=== PATIENT | male | born 1970 | race Hispanic/Latino ===

== ENCOUNTER 2020-11-18 09:30 | Emergency (ER) | payer SELFPAY ==
[2020-11-18 10:20] LABS: Urine Blood Trace-intact (Negative); Urine Glucose Negative (Negative); Urine Protein Negative (Negative)
[2020-11-18] MEDS ORDERED: NA CHLORIDE 0.9% 1,000 ML ONE (10:43)
[2020-11-18 10:58] LABS: Absolute Lymphocytes (CBC) 1.9 K/uL (0.7-4.9); Basophils % 0.4 % (0-1.3); Hematocrit 48.3 % (39.6-49.0); Lymphocytes % 27.6 % (15.3-44.8); MPV 8.5 fL (7.6-11.3); RBC Red Blood Cell Count 5.47 M/uL (4.33-5.43)
[2020-11-18 11:08] LABS: ALT/SGPT 67 U/L (12-78); AST/SGOT 31 U/L (15-37); Albumin 4.1 g/dL (3.4-5.0); Alkaline Phosphatase 87 U/L (45-117); BUN Blood Urea Nitrogen 15 mg/dL (7-18); Bicarbonate 28 mmol/L (21-32); Bilirubin Direct < 0.1 mg/dL (0-0.2); Bilirubin Total 0.3 mg/dL (0.2-1.0); Glucose Level 93 mg/dL (74-106); Lipase 88 U/L (73-393); Potassium 4.2 mmol/L (3.5-5.1); Protein, Total 8.2 g/dL (6.4-8.2); Sodium Level 139 mmol/L (136-145); Troponin (Emerg Dept Use Only) < 0.02 ng/mL (0.0-0.045)
--- NOTE | 2020-11-18 11:11 | RAD REPORT ---
EXAM DESCRIPTION: CTAbdomen Pelvis W Contrast - 11/18/2020 10:51 am CLINICAL HISTORY: Abdominal pain. ABD PAIN COMPARISON: CT ABD PELVIS W CONTRAST dated 03/25/2014 TECHNIQUE: Biphasic CT imaging of the abdomen and pelvis was performed with 100 ml non-ionic IV cont rast. All CT scans are performed using dose optimization technique as appropriate and may include automated exposure control or mA/KV adjustment according to patient size. FINDINGS: Calcified pleural plaquing is present bilaterally, greater on the right. The liver, spleen, pancreas, adrenal glands and kidneys are within normal limits. No bowel obstruction, free air, free fluid or abscess. The appendix is normal. No evidence of signi ficant lymphadenopathy. No suspicious bony findings. IMPRESSION: No acute intra-abdominal or pelvic finding.
--- NOTE | 2020-11-18 11:21 | RAD REPORT ---
EXAM DESCRIPTION: RAD - Chest Single View - 11/18/2020 10:31 am CLINICAL HISTORY: ABDOMINAL DISTENTION Chest pain. COMPARISON: No comparisons FINDINGS: Portable technique limits examination quality. The lungs are grossly clear. The heart is normal in size. No displaced fractures. IMPRESSION: No acute intrathoracic process suspected.
--- NOTE | 2020-11-18 11:57 | ER ---
Nurse's Notes [facility] Name: Sunil Paz Age: 50 yrs Sex: Male : 1970 Arrival Date: 11/18/2020 Time: 09:34 Bed 14 [facility] MD: Diagnosis: Abdominal pain, unspecified Presentation: 11/18 09:57 Chief complaint: Patient states: L flank pain that radiates to L side of abd with ss trouble urination and nausea at times x 2 weeks. Coronavirus screen: Client denies travel out of the [place] in the last 14 days. Ebola Screen: Patient denies exposure to infectious person. Patient denies travel to an Ebola-affected area in the 21 days before illness onset. Initial Sepsis Screen: Does the patient meet any 2 criteria? No. Patient's initial sepsis screen is negative. Does the patient have a suspected source of infection? No. Patient's initial sepsis screen is negative. Risk Assessment: Do you want to hurt yourself or someone else? Patient reports no desire to harm self or others. Onset of symptoms was November 04, 2020. 09:57 Method Of Arrival: Ambulatory ss 09:57 Acuity: ANTWON 3 ss Historical: - Allergies: 09:59 Unknown pain medication; ss - Home Meds: 09:59 None [Active]; ss - PMHx: 09:59 None; ss - PSHx: 09:59 None; ss - Immunization history:: Adult Immunizations up to date, Client reports receiving the 2nd dose of the Covid vaccine. - Social history:: Smoking status: Patient denies any tobacco usage or history of. - Family history:: not pertinent. Screenin:38 Abuse screen: Denies threats or abuse. Nutritional screening: No deficits noted. vg1 Tuberculosis screening: No symptoms or risk factors identified. Fall Risk No fall in past 12 months (0 pts). No secondary diagnosis (0 pts). IV access (20 points). Ambulatory Aid- None/Bed Rest/Nurse Assist (0 pts). Gait- Normal/Bed Rest/Wheelchair (0 pts) Mental Status- Oriented to own ability (0 pts). Total Sun Fall Scale indicates No Risk (0-24 pts). Assessment: 10:10 General: Appears in no apparent distress. comfortable, Behavior is calm, cooperative. vg1 Pain: Complains of pain in left lower quadrant and lower back Pain currently is 9 out of 10 on a pain scale. Quality of pain is described as sharp, Pain began about 2 weeks. Neuro: Level of Consciousness is awake, alert, obeys commands, Oriented to person, place, time, situation. Cardiovascular: Patient's skin is warm and dry. Respiratory: Airway is patent Respiratory effort is even, unlabored. GI: Bowel sounds present X 4 quads. Abdomen is tender to palpation in left lower quadrant Reports nausea, vomiting. : Urine is clear. EENT: No signs and/or symptoms were reported regarding the EENT system. Derm: Skin is intact, is healthy with good turgor. Musculoskeletal: Circulation, motion, and sensation intact. 11:39 Reassessment: Patient appears in no apparent distress at this time. No changes from vg1 previously documented assessment. Patient and/or family updated on plan of care and expected duration. Pain level reassessed. Patient is alert, oriented x 3, equal unlabored respirations, skin warm/dry/pink. Vital Signs: 09:57 BP 145 / 100; Pulse 63; Resp 16; Temp 97.2(TE); Pulse Ox 100% on R/A; Weight 78.02 kg; ss Height 5 ft. 9 in. (175.26 cm); Pain 9/10; 10:10 BP 144 / 88; Pulse 68; Resp 16; Pulse Ox 99% ; vg1 11:30 BP 154 / 91; Pulse 72; Resp 16; Pulse Ox 98% on R/A; vg1 09:57 Body Mass Index 25.40 (78.02 kg, 175.26 cm) ED Course: 09:34 Patient arrived in ED. ds1 09:59 Triage completed. ss 09:59 Arm band placed on right wrist. ss 10:00 Joss Gutierrez MD is Attending Physician. [facility] 10:12 Renetta Martell, RONNIE is Primary Nurse. vg1 10:28 Initial lab(s) drawn, by me, sent to lab. Inserted saline lock: 20 gauge in right vg1 antecubital area, using aseptic technique. Blood collected. 10:31 Chest Single View XRAY In Process Unspecified. EDMS 10:38 Patient has correct armband on for positive identification. Bed in low position. Call [facility] light in reach. Side rails up X 1. 10:52 CT Abd/Pelvis - IV Contrast Only In Process Unspecified. EDMS 12:15 No provider procedures requiring assistance completed. IV discontinued, intact, vg1 bleeding controlled, No redness/swelling at site. Pressure dressing applied. Administered Medications: 10:34 Drug: NS 0.9% 1000 ml Route: IV; Rate: 1 bolus; Site: right antecubital; vg1 11:48 Follow up: IV Status: Completed infusion; IV Intake: 1000ml vg1 Intake: 11:48 IV: 1000ml; Total: 1000ml. vg1 Outcome: 11:56 Discharge ordered by . troy 12:15 Discharged to home ambulatory. vg1 12:15 Condition: stable 12:15 Discharge instructions given to patient, Instructed on discharge instructions, follow up and referral plans. medication usage, Demonstrated understanding of instructions, follow-up care, medications, Prescriptions given X 1. 12:16 Patient left the ED. vg1 Signatures: Dispatcher [employer] EDMS Joss Gutierrez MD MD cha Sanford, Demi ds1 Roxanne Lees, Renetta Whitfield RN, RN RN vg1
--- NOTE | 2020-11-18 11:57 | EDPHYS ---
Physician Documentation [facility] Name: Sunil Paz Age: 50 yrs Sex: Male : 1970 Arrival Date: 11/18/2020 Time: 09:34 Bed 14 Private MD: VICKEY Physician Joss Gutierrez HPI: 11/18 11:51 This 50 yrs old Male presents to ER via Ambulatory with complaints of troy Abdominal Pain, Back Pain. 11:51 The patient presents with pain that is acute, with no known mechanism of injury. The troy symptoms are located in the low back, left low back and left mid back. Onset: The symptoms/episode began/occurred 14 day(s) ago. The pain radiates to the left low back and left mid back. Associated signs and symptoms: The patient has no apparent associated signs or symptoms. The problem was sustained from unknown cause. Modifying factors: The patient symptoms are alleviated by nothing, the patient symptoms are aggravated by nothing. Severity of symptoms: At their worst the symptoms were mild, this morning. The patient has not experienced similar symptoms in the past. Historical: - Allergies: 09:59 Unknown pain medication; ss - Home Meds: :59 None [Active]; ss - PMHx: :59 None; ss - PSHx: 09:59 None; ss - Immunization history:: Adult Immunizations up to date, Client reports receiving the 2nd dose of the Covid vaccine. - Social history:: Smoking status: Patient denies any tobacco usage or history of. - Family history:: not pertinent. ROS: 11:51 Constitutional: Negative for fever, chills, and weight loss, Eyes: Negative for injury, troy pain, redness, and discharge, ENT: Negative for injury, pain, and discharge, Neck: Negative for injury, pain, and swelling, Cardiovascular: Negative for chest pain, palpitations, and edema, Respiratory: Negative for shortness of breath, cough, wheezing, and pleuritic chest pain, Back: Negative for injury and pain, : Negative for injury, bleeding, discharge, and swelling, MS/Extremity: Negative for injury and deformity, Skin: Negative for injury, rash, and discoloration, Neuro: Negative for headache, weakness, numbness, tingling, and seizure, Psych: Negative for depression, anxiety, suicide ideation, homicidal ideation, and hallucinations, Allergy/Immunology: Negative for hives, rash, and allergies, Endocrine: Negative for neck swelling, polydipsia, polyuria, polyphagia, and marked weight changes, Hematologic/Lymphatic: Negative for swollen nodes, abnormal bleeding, and unusual bruising. 11:51 Abdomen/GI: Positive for abdominal pain, of the anterior aspect of left lateral abdomen, posterior aspect of left lateral abdomen and left lower quadrant. Exam: 11:51 Constitutional: This is a well developed, well nourished patient who is awake, alert, troy and in no acute distress. Head/Face: Normocephalic, atraumatic. Eyes: Pupils equal round and reactive to light, extra-ocular motions intact. Lids and lashes normal. Conjunctiva and sclera are non-icteric and not injected. Cornea within normal limits. Periorbital areas with no swelling, redness, or edema. ENT: Nares patent. No nasal discharge, no septal abnormalities noted. Tympanic membranes are normal and external auditory canals are clear. Oropharynx with no redness, swelling, or masses, exudates, or evidence of obstruction, uvula midline. Mucous membranes moist. Neck: Trachea midline, no thyromegaly or masses palpated, and no cervical lymphadenopathy. Supple, full range of motion without nuchal rigidity, or vertebral point tenderness. No Meningismus. Chest/axilla: Normal chest wall appearance and motion. Nontender with no deformity. No lesions are appreciated. Cardiovascular: Regular rate and rhythm with a normal S1 and S2. No gallops, murmurs, or rubs. Normal PMI, no JVD. No pulse deficits. Respiratory: Lungs have equal breath sounds bilaterally, clear to auscultation and percussion. No rales, rhonchi or wheezes noted. No increased work of breathing, no retractions or nasal flaring. Abdomen/GI: Soft, non-tender, with normal bowel sounds. No distension or tympany. No guarding or rebound. No evidence of tenderness throughout. Back: No spinal tenderness. No costovertebral tenderness. Full range of motion. Male : Normal genitalia with no discharge or lesions. Skin: Warm, dry with normal turgor. Normal color with no rashes, no lesions, and no evidence of cellulitis. MS/ Extremity: Pulses equal, no cyanosis. Neurovascular intact. Full, normal range of motion. Neuro: Awake and alert, GCS 15, oriented to person, place, time, and situation. Cranial nerves II-XII grossly intact. Motor strength 5/5 in all extremities. Sensory grossly intact. Cerebellar exam normal. Normal gait. Psych: Awake, alert, with orientation to person, place and time. Behavior, mood, and affect are within normal limits. 11:57 ECG was reviewed by the Attending Physician. [facility] Vital Signs: 09:57 BP 145 / 100; Pulse 63; Resp 16; Temp 97.2(TE); Pulse Ox 100% on R/A; Weight 78.02 kg; ss Height 5 ft. 9 in. (175.26 cm); Pain 9/10; 10:10 BP 144 / 88; Pulse 68; Resp 16; Pulse Ox 99% ; vg1 11:30 BP 154 / 91; Pulse 72; Resp 16; Pulse Ox 98% on R/A; vg1 09:57 Body Mass Index 25.40 (78.02 kg, 175.26 cm) MDM: 10:00 Patient medically screened. [facility] 11:54 Differential diagnosis: Peptic Ulcer Pyelonephritis sprain. Data reviewed: vital signs, [facility] nurses notes, lab test result(s), EKG, radiologic studies, CT scan. Data interpreted: panel monitor: rate is 72 beats/min, rhythm is regular, Pulse oximetry: on room air is 98 %. Test interpretation: by ED physician or midlevel provider: ECG, plain radiologic studies. Counseling: I had a detailed discussion with the patient and/or guardian regarding: the historical points, exam findings, and any diagnostic results supporting the discharge/admit diagnosis, lab results, radiology results. 11/18 10:04 Order name: Basic Metabolic Panel [facility] 11/18 10:04 Order name: CBC with Diff [facility] 11/18 10:04 Order name: Hepatic Function [facility] 11/18 10:04 Order name: Lipase; Complete Time: 11:45 [facility] 11/18 10:04 Order name: Urine Culture [facility] 11/18 10:04 Order name: Troponin (emerg Dept Use Only); Complete Time: 11:45 [facility] 11/18 10:04 Order name: Chest Single View XRAY; Complete Time: 11:45 [facility] 11/18 10:04 Order name: EKG; Complete Time: 10:05 [facility] 11/18 10:04 Order name: CT Abd/Pelvis - IV Contrast Only; Complete Time: 11:45 [facility] 11/18 10:05 Order name: Basic Metabolic Panel; Complete Time: 11:45 [facility] 11/18 10:05 Order name: CBC with Automated Diff; Complete Time: 11:45 [facility] 11/18 10:05 Order name: Liver (Hepatic) Function; Complete Time: 11:45 [facility] 11/18 10:20 Order name: Urine Dipstick-Ancillary; Complete Time: 11:45 [facility] 11/18 10:04 Order name: IV Saline Lock; Complete Time: 10:35 [facility] 11/18 10:04 Order name: Labs collected and sent; Complete Time: 10:35 [facility] 11/18 10:04 Order name: Urine Dipstick-Ancillary (obtain specimen); Complete Time: 10:21 [facility] 11/18 10:04 Order name: EKG - Nurse/Tech; Complete Time: 10:22 [facility] EC:57 Rate is 57 beats/min. Rhythm is regular. QRS [place] is Normal. RI interval is normal. QRS troy interval is normal. QT interval is normal. No Q waves. T waves are Normal. No ST changes noted. Clinical impression: Sinus bradycardia and No evidence of ischemia. Interpreted by me. Reviewed by me. Administered Medications: 10:34 Drug: NS 0.9% 1000 ml Route: IV; Rate: 1 bolus; Site: right antecubital; vg1 11:48 Follow up: IV Status: Completed infusion; IV Intake: 1000ml vg1 Disposition Summary: 11/18/20 11:56 Discharge Ordered Location: Home troy Problem: new troy Symptoms: have improved troy Condition: Stable troy Diagnosis - Abdominal pain, unspecified troy Followup: troy - With: Private Physician - When: 2 - 3 days - Reason: Recheck today's complaints, Continuance of care, Re-evaluation by your physician Discharge Instructions: - Discharge Summary Sheet troy - Abdominal Pain, Adult troy - Pain Without a Known Cause troy Forms: - Medication Reconciliation Form troy - Thank You Letter troy - Antibiotic Education troy - Prescription Opioid Use troy Prescriptions: - dicyclomine 20 mg Oral Tablet - take 1 tablet by ORAL route 4 times per day; 20 tablet; Refills: 0, Product troy Selection Permitted Signatures: Dispatcher [employer] Joss Stanton MD MD cha Smirch, Shelby, RN RN ss Jasbir, Renetta, RN RN vg1
[2020-11-18 12:42] VITALS: TEMP 97.2
[2020-11-18 12:45] VITALS: BP 154/91; O2SAT 98
== END 2020-11-18 12:16 | disposition home or self-care (01) ==
LOC: ER 09:30
DX: R10.32 Left lower quadrant pain (principal)
CPT/HCPCS: 36415; 71045; 74177; 80048; 80076; 81003; 82565; 83690; 84484; 85025; 87086; 87088; 93005; 96360; 99284; J7030; Q9967

== ENCOUNTER 2022-08-16 08:28 | Emergency (ER) | payer SELFPAY ==
--- OUTSIDE RECORDS SUMMARY | 2022-08-16 08:30 | XMS REPORT | Continuity of Care Document ---
:1970 Author Organization [facility] t Address [address] [place] [id number] Care Team Providers Name Role Phone Unavailable Unavailable Unavailable Problems This patient has no known problems. Allergies, Adverse Reactions, Alerts This patient has no known allergies or adverse reactions. Medications This patient has no known medications. Procedures This patient has no known procedures. Results This patient has no known results.
[2022-08-16] MEDS ORDERED: ONDANSETRON 4 MG/2 ML VIAL ONE (09:08)
[2022-08-16] MEDS ORDERED: MORPHINE 4 MG/ML SYR ONE (09:08)
--- NOTE | 2022-08-16 09:18 | RAD REPORT ---
EXAM DESCRIPTION: CT - Stone Protocol - 08/16/2022 9:01 am CLINICAL HISTORY: Abdominal pain./back COMPARISON: 2020 TECHNIQUE: Computed axial tomography of the abdomen pelvis was obtained without oral or IV contrast. Lack of IV and oral contrast limits evaluation of solid organs, appendix, bowel, and vessels. Espinoza l reformatted images were obtained and reviewed. All CT scans are performed using dose optimization technique as appropriate and may include automated exposure control or mA/KV adjustment according to patient size. FINDINGS: A renal calculus is not seen. An ureteral calculus is not noted. A bladder calculus is not present. The liver, spleen, pancreas and adrenals appear grossly normal There is no evidence of diverticulitis. The appendix appears normal Bilateral calcified pleural plaque in demonstrated Small left paracentral disc herniation is suspected at L4-5 IMPRESSION: Negative for a genitourinary calculus Small left paracentral disc herniation is suspected at L4-5
[2022-08-16 09:25] LABS: Absolute Lymphocytes (CBC) 2.4 K/uL (0.7-4.9); Lymphocytes % 29.2 % (15.3-44.8); MPV 8.7 fL (7.6-11.3); RBC Red Blood Cell Count 5.34 M/uL (4.33-5.43)
[2022-08-16 09:41] LABS: Specific Gravity 1.007 (1.005-1.030); Urine Bacteria None Seen /HPF (<20); Urine Bilirubin NEGATIVE (Negative); Urine Blood Trace (Negative); Urine Clarity Clear (Clear); Urine Color Colorless (Yellow); Urine Glucose NEGATIVE (Negative); Urine Protein NEGATIVE (Negative); Urine RBC <5 /HPF (None Seen); Urine Urobilinogen Normal (Normal); Urine pH 6.5 (5.0-7.0)
[2022-08-16 09:43] LABS: Albumin 4.2 g/dL (3.4-5.0); Bilirubin Total 0.5 mg/dL (0.2-1.0)
[2022-08-16] MEDS ORDERED: dexAMETHasone 10 MG/ML VIAL ONE (09:54)
--- NOTE | 2022-08-16 10:02 | ER ---
Nurse's Notes [facility] Name: Sunil Paz Age: 52 yrs Sex: Male : 1970 Arrival Date: 08/16/2022 Time: 08:[address] Private MD: Diagnosis: Low back pain;Radiculopathy, lumbar region Presentation: 08/16 08:50 Chief complaint: Patient states: MAXINE flank pain that radiates to lower ABD, states vg1 nausea. Coronavirus screen: Vaccine status: Patient reports receiving the 2nd dose of the covid vaccine. Client denies travel out of the [place] in the last 14 days. Ebola Screen: Patient negative for fever greater than or equal to 101.5 degrees Fahrenheit, and additional compatible Ebola Virus Disease symptoms Patient denies exposure to infectious person. Patient denies travel to an Ebola-affected area in the 21 days before illness onset. Initial Sepsis Screen: Does the patient meet any 2 criteria? No. Patient's initial sepsis screen is negative. Does the patient have a suspected source of infection? No. Patient's initial sepsis screen is negative. Risk Assessment: Do you want to hurt yourself or someone else? Patient reports no desire to harm self or others. Onset of symptoms was August 11, 2022. 08:50 Method Of Arrival: Ambulatory vg1 08:50 Acuity: ANTWON 3 vg1 Triage Assessment: 08:54 General: Appears uncomfortable, Behavior is calm, cooperative. Pain: Complains of pain vg1 in back, right lower quadrant and left lower quadrant Pain currently is 10 out of 10 on a pain scale. GI: Reports nausea. Historical: - Allergies: 08:54 No Known Allergies; vg1 - Home Meds: 08:54 Allopurinol Oral [Active]; Indomethacin Oral [Active]; vg1 - Immunization history:: Client reports receiving the 2nd dose of the Covid vaccine. - Social history:: Smoking status: Patient denies any tobacco usage or history of. - Family history:: not pertinent. - Hospitalizations: : No recent hospitalization is reported. Screenin:23 [facility] ED Fall Risk Assessment (Adult) History of falling in the last 3 months, db including since admission No falls in past 3 months (0 pts) Confusion or Disorientation No (0 pts) Intoxicated or Sedated No (0 pts) Impaired Gait No (0 pts) Mobility Assist Device Used No (0 pt) Altered Elimination No (0 pt) Score/Fall Risk Level 0 - 2 = Low Risk Oriented to surroundings, Maintained a safe environment. Abuse screen: Denies threats or abuse. Denies injuries from another. Nutritional screening: No deficits noted. Tuberculosis screening: No symptoms or risk factors identified. Assessment: 09:20 Reassessment: Patient appears in no apparent distress at this time. Patient and/or db family updated on plan of care and expected duration. Pain level reassessed. Patient is alert, oriented x 3, equal unlabored respirations, skin warm/dry/pink. bilateral flank pain x 4 days. General: Appears in no apparent distress. comfortable, Behavior is calm, cooperative. Pain: Complains of pain in back. Neuro: Level of Consciousness is awake, alert, obeys commands, Oriented to person, place, time, situation. Respiratory: Airway is patent Respiratory effort is even, unlabored, Respiratory pattern is regular, symmetrical. GI: Abdomen is flat, non-distended. 09:57 Reassessment: No changes from previously documented assessment. Patient and/or family ll1 updated on plan of care and expected duration. Pain level reassessed. Patient is alert, oriented x 3, equal unlabored respirations, skin warm/dry/pink. 10:12 Reassessment: No changes from previously documented assessment. Patient and/or family ll1 updated on plan of care and expected duration. Pain level reassessed. Patient is alert, oriented x 3, equal unlabored respirations, skin warm/dry/pink. Vital Signs: 08:50 BP 136 / 86; Pulse 66; Resp 16; Temp 98.7(O); Pulse Ox 99% on R/A; Weight 81.19 kg; vg1 Height 5 ft. 9 in. ; Pain 10/10; 09:15 BP 142 / 96; Pulse 74; Resp 18; Pulse Ox 98% on R/A; db 09:57 BP 129 / 76; Pulse 70; Pulse Ox 99% ; ll1 10:11 BP 132 / 74; Pulse 66; Resp 16; Pulse Ox 97% ; Pain 5/10; ll1 08:50 Body Mass Index 26.43 (81.19 kg, 175.26 cm) vg1 08:50 Pain Scale: Adult vg1 10:11 Pain Scale: Adult ll1 ED Course: 08:37 Patient arrived in ED. am2 08:40 Isidro Gilman MD is Attending Physician. rn 08:54 Triage completed. vg1 08:54 Arm band placed on. vg1 08:57 Mellisa Morales, RN is Primary Nurse. ll1 09:03 CT Stone Protocol In Process Unspecified. EDMS 09:05 Inserted saline lock: 20 gauge in right antecubital area, using aseptic technique. db ,using aseptic technique. by KJ Blood collected. 09:30 Patient has correct armband on for positive identification. Bed in low position. Call db light in reach. Side rails up X 1. Pulse ox on. NIBP on. Warm blanket given. 10:12 No provider procedures requiring assistance completed. IV discontinued, intact, ll1 bleeding controlled, No redness/swelling at site. Pressure dressing applied. Administered Medications: 09:19 Drug: morphine IVP or IV 4 mg Route: IVP; Infused Over: 4 mins; Site: right antecubital;db 09:57 Follow up: Response: No adverse reaction; Pain is decreased; RASS: Alert and Calm (0) ll1 09:20 Drug: Ondansetron IVP 4 mg Route: IVP; Site: right antecubital; db 09:57 Follow up: Response: No adverse reaction ll1 09:56 Drug: Decadron - Dexamethasone IVP 10 mg Route: IVP; Site: right antecubital; ll1 10:12 Follow up: Response: No adverse reaction ll1 Medication: 10:12 VIS not applicable for this client. ll1 Outcome: 10:01 Discharge ordered by . rn 10:12 Discharged to home ambulatory. ll1 10:12 Condition: stable 10:12 Discharge instructions given to patient, Instructed on discharge instructions, follow up and referral plans. no drinking with medication, no driving heavy equipment, medication usage, Demonstrated understanding of instructions, follow-up care, medications, Prescriptions given X 3. 10:13 Patient left the ED. ll1 Signatures: Dispatcher [employer] EDAK Isidro Gilman MD MD rn Moreno, Amanda am2 Garcia, Victoria RN RN vg1 Mellisa Morales, RN RN ll1 Vika Shore RN RN db
--- NOTE | 2022-08-16 10:02 | EDPHYS ---
Physician Documentation [facility] Name: Sunil Paz Age: 52 yrs Sex: Male : 1970 Arrival Date: 08/16/2022 Time: 08:[address] Private MD: ED Physician Isidro Gilman HPI: 08/16 09:30 This 52 yrs old Male presents to ER via Ambulatory with complaints of Low Back rn Pain, Flank Pain. 09:30 The patient presents with pain that is acute, with no known mechanism of injury. The rn symptoms are located in the low back. The pain radiates to the abdomen. Onset: The symptoms/episode began/occurred 4 day(s) ago. Modifying factors: The patient symptoms are alleviated by nothing, the patient symptoms are aggravated by any movement, bending, lifting. Associated signs and symptoms: Pertinent positives: none Pertinent negatives: abdominal pain, fever, hematuria, incontinence, nausea, numbness, tingling, urinary retention, vomiting, weakness. Severity of symptoms: At their worst the symptoms were moderate, in the emergency department the symptoms are unchanged. The patient has not experienced similar symptoms in the past. The patient has not recently seen a physician. Pt reports low back pain, began 4-5 days ago, no trauma, no fall, radiates around to lower abd, no weakness, no bowel/bladder problems. No fever. Reports was at work and lifting something heavy that day. . Historical: - Allergies: 08:54 No Known Allergies; vg1 - Home Meds: 08:54 Allopurinol Oral [Active]; Indomethacin Oral [Active]; vg1 - Immunization history:: Client reports receiving the 2nd dose of the Covid vaccine. - Social history:: Smoking status: Patient denies any tobacco usage or history of. - Family history:: not pertinent. - Hospitalizations: : No recent hospitalization is reported. ROS: 09:30 Constitutional: Negative for fever, chills, and weight loss, Cardiovascular: Negative rn for chest pain, palpitations, and edema, Respiratory: Negative for shortness of breath, cough, wheezing, and pleuritic chest pain, Abdomen/GI: Negative for diarrhea, and constipation Back: + low back pain MS/Extremity: Negative for injury and deformity, Skin: Negative for injury, rash, and discoloration, Neuro: Negative for headache, weakness, numbness, tingling, and seizure. Exam: 09:30 Constitutional: This is a well developed, well nourished patient who is awake, alert, rn and in no acute distress. Cardiovascular: Regular rate and rhythm. No pulse deficits. Respiratory: No increased work of breathing, no retractions or nasal flaring. Abdomen/GI: Soft, non-tender Back: No spinal tenderness. No costovertebral tenderness. Skin: Warm, dry MS/ Extremity: Pulses equal, no cyanosis. Neuro: Awake and alert, GCS 15, oriented to person, place, time, and situation. Cranial nerves II-XII grossly intact. Motor strength 5/5 in all extremities. Sensory grossly intact. Cerebellar exam normal. Normal gait. Vital Signs: 08:50 BP 136 / 86; Pulse 66; Resp 16; Temp 98.7(O); Pulse Ox 99% on R/A; Weight 81.19 kg; vg1 Height 5 ft. 9 in. ; Pain 10/10; 09:15 BP 142 / 96; Pulse 74; Resp 18; Pulse Ox 98% on R/A; db 09:57 BP 129 / 76; Pulse 70; Pulse Ox 99% ; ll1 10:11 BP 132 / 74; Pulse 66; Resp 16; Pulse Ox 97% ; Pain 5/10; ll1 08:50 Body Mass Index 26.43 (81.19 kg, 175.26 cm) vg1 08:50 Pain Scale: Adult vg1 10:11 Pain Scale: Adult ll1 MDM: 08:40 Patient medically screened. rn 10:00 Differential diagnosis: arthritis, strain, fracture, sciatica, contusion, Herniated rn disc UTI. Data reviewed: vital signs, nurses notes, lab test result(s), radiologic studies, CT scan, and as a result, I will discharge patient. Counseling: I had a detailed discussion with the patient and/or guardian regarding: the historical points, exam findings, and any diagnostic results supporting the discharge/admit diagnosis, lab results, radiology results, the need for outpatient follow up, to return to the emergency department if symptoms worsen or persist or if there are any questions or concerns that arise at home. Response to treatment: the patient's symptoms have markedly improved after treatment, and as a result, I will discharge patient. Special discussion: I discussed with the patient/guardian in detail that at this point there is no indication for admission to the hospital. It is understood, however, that if the symptoms persist or worsen the patient needs to return immediately for re-evaluation. Based on the history and exam findings, there is no indication for further emergent testing or inpatient evaluation. I discussed with the patient/guardian the need to see the back specialist for further evaluation of the symptoms. I discussed with the patient/guardian the need to see the primary care provider for further evaluation of the symptoms. 08/16 08:48 Order name: CBC with Diff; Complete Time: 09:44 rn 08/16 08:48 Order name: CMP; Complete Time: 09:44 rn 08/16 08:48 Order name: Lipase; Complete Time: :44 rn 08/16 08:48 Order name: Urinalysis w/ reflexes; Complete Time: :44 rn 08/16 08:49 Order name: CT Stone Protocol; Complete Time: 09:19 rn 08/16 08:48 Order name: IV Saline Lock; Complete Time: 09:20 rn 08/16 08:48 Order name: Labs collected and sent; Complete Time: 09:20 rn Administered Medications: 09:19 Drug: morphine IVP or IV 4 mg Route: IVP; Infused Over: 4 mins; Site: right antecubital;db 09:57 Follow up: Response: No adverse reaction; Pain is decreased; RASS: Alert and Calm (0) ll1 09:20 Drug: Ondansetron IVP 4 mg Route: IVP; Site: right antecubital; db 09:57 Follow up: Response: No adverse reaction ll1 09:56 Drug: Decadron - Dexamethasone IVP 10 mg Route: IVP; Site: right antecubital; ll1 10:12 Follow up: Response: No adverse reaction ll1 Disposition Summary: 08/16/22 10:01 Discharge Ordered Location: Home rn Problem: new rn Symptoms: have improved rn Condition: Stable rn Diagnosis - Low back pain rn - Radiculopathy, lumbar region rn Followup: rn - With: Private Physician - When: As needed - Reason: Recheck today's complaints, Re-evaluation by your physician Discharge Instructions: - Discharge Summary Sheet rn - Acute Back Pain, Adult rn - Herniated Disk rn - Lumbosacral Radiculopathy rn - Musculoskeletal Pain rn Forms: - Work release form bd - Medication Reconciliation Form rn - Thank You Letter rn - Antibiotic rn ortho - Prescription Opioid Use rn Prescriptions: - Cyclobenzaprine 10 mg Oral Tablet - take 1 tablet by ORAL route every 8 hours As needed; 15 tablet; Refills: 0, rn Product Selection Permitted - Tramadol 50 mg Oral Tablet - take 1 tablet by ORAL route every 8 hours as needed; 12 tablet; Refills: 0, rn Product Selection Permitted - Medrol (Mic) 4 mg Oral Tablets, Dose Pack - take 1 tablet by ORAL route as directed - follow package instructions; 1 rn packet; Refills: 0, Product Selection Permitted Signatures: Dispatcher [employer] EDIsidro Lacy MD MD rn Garcia, Victoria RN RN vg1 Mellisa Morales RN RN ll1 Vika Shore RN RN db
[2022-08-16 10:33] VITALS: TEMP 98.7
[2022-08-16 10:37] VITALS: BP 132/74; O2SAT 97
== END 2022-08-16 10:13 | disposition home or self-care (01) ==
LOC: ER 08:28
DX: M54.16 Radiculopathy, lumbar region (principal)
CPT/HCPCS: 36415; 74176; 76377; 80053; 81001; 83690; 85025; J1100; J2405